=== PATIENT | male | born 1970 | race Two or more races ===

== ENCOUNTER 2024-07-08 07:20 | Emergency (ER) | payer BC, SELFPAY ==
[2024-07-08 07:21] VITALS: BMI 28.1
[2024-07-08 07:28] VITALS: BP 169/99; PULSE 82; RESP 16; TEMP 36.9; O2SAT 98
--- NOTE | 2024-07-08 07:36 | XR_ITS ---
Examination: CT brain head without contrast. 2-D sagittal coronal reconstructions Date and time of exam:July 08, 2024 at 0725 hrs. Comparison April 13, 2023 Indications: Headaches blood pressure today CTDI: vol (mGy):54 DLP: (mGycm):1032 Technique: Multiple CT axial sections of the brain have been obtained, 5 mm slice thickness. Contrast has not been administered. 2-D sagittal, coronal reconstructions have been obtained Low dose protocols were performed. One or more of the following dose reduction techniques were used; automated exposure control, adjustment of the mA and/or KV according to patient size, use of iterative reconstruction technique. Findings: No significant ventricular enlargement. 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 No mass effect or midline shift Basal cisterns are not remarkable. Fourth ventricle is midline. Cranial vault intact. Chronic left mastoiditis Impression: Negative for acute hemorrhage, mass effect or midline shift
--- NOTE | 2024-07-08 07:36 | XR_ITS ---
Examination: PA lateral chest 2 views Technique: Upright PA lateral chest 2 views Exam date and time: July 08, 2024 0748 hrs. Comparison June 13, 2022 Indications: Elevated blood pressure chest pain today Findings: Normal heart size. Lungs are clear. The osseous structures are intact Impression: No active disease
--- NOTE | 2024-07-08 07:36 | EKG_ITS ---
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
--- NOTE | 2024-07-08 07:37 | PD.EDRME ---
Rapid Medical Screening Exam RME Arrival date/time: 07/08/24 07:20 54-year-old male history of hypertension and hypokalemia currently taking amlodipine and losartan presents to the emergency department today with complaints of elevated blood pressure and headache Chief Complaint: General Adult/Misc Complain Time Seen by Provider: 07/08/24 07:32 Vital signs: Vital Signs Temperature 98.5 F 07/08/24 07:28 Pulse Rate 82 07/08/24 07:28 Respiratory Rate 16 07/08/24 07:28 Blood Pressure 169/99 H 07/08/24 07:28 Pulse Oximetry (%) 98 07/08/24 07:28 Oxygen Delivery Method Room Air 07/08/24 07:28
[2024-07-08 08:30] VITALS: BP 162/95; PULSE 83; RESP 16; TEMP 36.9; O2SAT 98
[2024-07-08 09:05] VITALS: BP 155/101; BP 164/95; BP 167/111; PULSE 86; PULSE 88; PULSE 98
[2024-07-08 09:21] VITALS: BP 150/87; PULSE 78
[2024-07-08] MEDS: hydrALAZINE HCL 25 MG TABLET PO (09:21)
[2024-07-08 09:33] LABS: Basophils # (Auto) 0.1 Thou/mm3 (0.0-0.2); Basophils % (Auto) 1 % (0-2.5); Eosinophils # (Auto) 0.1 Thou/mm3 (0.0-0.5); Eosinophils % (Auto) 1 % (0-10); Hematocrit 49.5 % (41.0-53.0); Hemoglobin 17.6 g/dL (13.5-16.0); Immature Granulocytes % (Auto) 0 % (0-0); Immature Granulocytes Auto 0.02 Thou/mm3 (0.00-0.00); Lymphocytes # (Auto) 1.6 Thou/mm3 (1.0-4.8); Lymphocytes % (Auto) 21 % (10-50); Mean Corpuscular HGB Conc 35.6 g/dl (31.0-37.0); Mean Corpuscular Hemoglobin 29.3 pg (25.0-35.0); Mean Corpuscular Volume 83 fL (80-100); Monocytes # (Auto) 0.5 Thou/mm3 (0.0-0.8); Monocytes % (Auto) 6 % (0-12); Neutrophils # (Auto) 5.3 Thou/mm3 (1.8-7.7); Neutrophils % (Auto) 70 % (37-80); Nucleated Red Blood Cell % 0 /100 WBC (0); Platelet Count 184 Thou/mm3 (140-440); RDW Standard Deviation 39.1 fL (35.1-43.9); White Blood Count 7.5 Thou/mm3 (3.8-10.6)
--- NOTE | 2024-07-08 09:42 | EDNOTE_ITS ---
ED Dizzyness RME/HPI General Chief Complaint: General Adult/Misc Complain Stated Complaint: HIGH BLOOD PRESSURE SINCE THIS AM Time Seen by Provider: 07/08/24 07:32 Arrival date/time: 07/08/24 07:20 RME / HPI RME / HPI Narrative: 07/08/24 07:20 54-year-old male history of hypertension and hypokalemia currently taking amlodipine and losartan presents to the emergency department today with complaints of elevated blood pressure and headache --------- Main ED Evaluation: Patient is a 54-year-old male with past medical history of hypertension who presents to the ED with dizziness starting 4 days ago. Patient reports the dizziness is described as spinning and it worsens if he tilts his head backwards, goes from sitting to laying, or watches flashing lights on a screen and is relieved if he closes his eyes. He denies any lightheadedness or prodrome of fainting. He notes unsteadiness with walking due to the dizziness. He states his blood pressure has been high over the last few days with systolic in the 1 80s and he has been poorly compliant with his BP medications during the week due to believing that the amlodipine is making him urinate more frequently at work. Patient also has history of having hypokalemia and states that when he eats a banana the dizziness tends to improve for a few hours. 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 Conversational and non-toxic appearing. HEENT: Normocephalic, atraumatic, mucous membranes moist. Right and left tympanic membranes intact and clear without exudate or erythema. Heart: Regular rate and rhythm, no murmurs. Lungs: Clear to auscultation with no wheezing or crackles. Abdomen: Soft, nondistended, nontender, positive bowel sounds. ?No guarding or rebound tenderness. Neurologic: Alert and oriented x3, no gross neurological deficit, and patient able to move all 4 extremities. Negative Marie-Hallpike. Negative Head Impulse Luciana t. Negative for horizontal or vertical nystagmus. Negative for diplopia. Extremities: No edema. Skin: No rash or ecchymoses. Course Quality Measures none Orders Category Date Time Status EKG (ED ONLY) *Do not use* NOW Care 07/08/24 07:36 Completed Orthostatic Vitals X1 Care 07/08/24 09:[address] head/brain wo con Stat Exams 07/08/24 07:36 Completed EKG (ED Only) Stat Exams 07/08/24 07:36 Draft XR chest 2V Stat Exams 07/08/24 07:36 Completed CBC Stat Lab 07/08/24 08:30 Completed Comprehensive Metabolic Panel Stat Lab 07/08/24 08:30 Completed Troponin I Stat Lab 07/08/24 08:30 Completed Potassium Chloride [K-Dur] Med 07/08/24 10:06 Discontinued 40 meq PO X1 ONE hydrALAZINE HCL [Apresoline] Med 07/08/24 09:00 Discontinued 25 mg PO X1 ONE Vital Signs Vital signs: Vital Signs Temperature 98.5 F 07/08/24 07:28 Pulse Rate 82 07/08/24 07:28 Respiratory Rate 16 07/08/24 07:28 Blood Pressure 169/99 H 07/08/24 07:28 Pulse Oximetry (%) 98 07/08/24 07:28 Oxygen Delivery Method Room Air 07/08/24 07:28 Procedures -ED EKG Interpretation #1: Date of EK07/08/24 Time of EK:41 Rate: 88 Interpretation: Interpreted by me EKG Impression: Normal sinus rhythm, No acute ST-T changes, Normal QRS and Normal intervals Dizziness MDM Narrative MDM Narrative:: Differentials for the patient's dizziness include hypertensive urgency, hypertensive emergency, orthostatic hypotension, benign paroxysmal peripheral vertigo, central vertigo secondary to TIA, stroke, or hypertensive urgency, posterior vertebral basilar syndrome, cerebral aneurysm. CT head was not showing any acute hemorrhage or subacute strokes. Physical exam did not reveal any positive findings concerning for a central cause of vertigo. Marie-Hallpike testing was negative. Patient was given a dose of PO hydralazine 25 mg, BP improved to 123/73 and stated that his dizziness symptoms improved. Labs revealed polycythemia which the patient appears to have had a history, he d enied any prior significant history of smoking nor high altitude living as potential causes of secondary polycythemia, therefore patient was instructed to follow up with his PCP regarding these findings. Labs also showed hypokalemia of 3.1, he was given a dose of PO potassium 40 mEq here in the ED. As he has a history of low potassium he was also encouraged to increase oral intake of potassium rich foods as well as follow up with his primary regarding following the potassium level and potential need for further workup should it be continuously low. Patient data External records reviewed:: [facility] previous records Clinical information provided by:: patient and spouse Social determinants that could affect healthcare access:: none Patient has the following chronic illnesses:: As above How is presenting disease/condition affected by chronic disease/condition?: exacerbated by Evaluation data The following diagnostics were reviewed and interpreted by me:: lab results, radiology exam(s) and EKG tracing(s) Lab and/or radiology exams considered but not ordered:: Ordered Interpretation Summary: -------- CT head without contrast Findings: No significant ventricular enlargement. 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 No mass effect or midline shift Basal cisterns are not remarkable. Fourth ventricle is midline. Cranial vault intact. Chronic left mastoiditis Impression: Negative for acute hemorrhage, mass effect or midline shift -------- Orthostatic vitals were as follows: Lying BP 164/95, HR 86 Sitting BP 155/101, HR 88 Standing BP 167/111, HR 98 Orthostatics are negative according to my interpretation. -------- Chest X-Ray is negative according to my interpretation. No pneumonia, no card iomegaly, no pulmonary vascular congestion. -------- Hgb is high at 17.6 but the patient also appears to have chronically high hemoglobin. Potassium is low at 3.1. Troponin is negative. Medications / Prescriptions Medications or Prescriptions considered but not ordered:: IV hydralazine Medication administrations:: Medication Administration History Discontinued Medications Hydralazine HCl (Hydralazine Hcl 25 Mg Tablet) 25 mg PO X1 ONE Stop: 07/08/24 09:01 Last Admin: 07/08/24 09:21 Dose: 25 mg Documented By: LIN Potassium Chloride (Potassium Chloride 20 Meq Tabcr) 40 meq PO X1 ONE Stop: 07/08/24 10:07 Last Admin: 07/08/24 10:22 Dose: 40 meq Documented By: VG Given Consultations Consultation(s) initiated? (list below): No Diagnosis Dizziness Differential Diagnosis: benign paroxysmal positional vertigo, orthostatic hypotension, vertebral basilar insufficiency, cerebrovascular accident, acute vestibular neuronitis and transient cerebral ischemia Most likely diagnosis given after review of the tests above:: Hypertensive urgency Admission Indicated Admission indicated?: not indicated Admission Request Was there a request for admission?: No Disposition Plan Disposition Plan: Discharge Discharge Attestation Discharge Attestation: The patient and all family members were given an opportunity to ask questions and understood the discharge instructions. Discharge instructions specifically effects, indications for sooner follow up or return to the emergency department, and the expected course of current diagnosis. Patient condition: Stable Discharge Plan Plan Patient Disposition: HOME (Self Care) Patient condition on transfer: Stable Prescriptions/Referrals Referrals: Flaco Menjivar MD [Primary Care Provider] - In 1 week Problem List Clinical Impression: Dizziness, Hypokalemia, Erythrocytosis Patient/Caregiver Discharge Instructions Discharge Activity: activity as tolerated and resume usual activities Education Materials: Vertigo Staying Safe, Discharge Instructions for ..., ED Hypokalemia Additional Instructions: Today you were seen for dizziness. A CT head scan today was negative for any abnormal findings. Physical exam testing for dizziness was negative, including [place]-Hallpike testing, nystagmus testing, and head-impulse testing. Your blood pressure in the ED ranged from 169/99 to 123/73. You received 40 mEq oral potassium and 40 mg oral hydralazine today in the ED. Please follow up with your primary care provider regarding the following lab results: -Low potassium, 3.1 today in the ED. -High hemoglobin, 17.6 today in the ED. You may need further workup to look at causes for these abnormal tests. For now, please see the following handouts for ways to supplement potassium. Please return to the ED if you have any worsening of symptoms, changes in vision, difficulty walking, sudden weakness. Print Language: Luxembourger Stand Alone Forms: Shanon Award Info., Patient Portal Info Letter
[2024-07-08 09:44] LABS: Alanine Aminotransferase 30 U/L (10-49); Albumin, Serum 4.6 gm/dL (3.5-5.0); Albumin/Globulin Ratio 1.7 (1.2-2.2); Alkaline Phosphatase 118 U/L (46-116); Anion Gap 9 (7-16); Aspartate Amino Transferase 19 U/L (0-34); BUN/Creatinine Ratio 12 Ratio (12-20); Bilirubin,Total 1.6 mg/dL (0.3-1.2); Blood Urea Nitrogen 11 mg/dL (9-23); Calcium 9.5 mg/dL (8.3-10.6); Calcium (Corrected) 9.5 mg/dL (8.5-10.1); Carbon Dioxide 25.8 mMol/L (20.0-31.0); Chloride 105 mMol/L (98-107); Creatinine (Component) 0.9 mg/dL (0.6-1.3); Estimated Creatinine Clearance 93.7 mL/min (>60); Globulin 2.7 gm/dL (2.3-3.5); Glucose 106 mg/dL (74-106); Osmolality,Calculated 278 (275-295); Potassium 3.1 mMol/L (3.4-5.1); Sodium 140 mMol/L (136-145); Total Protein 7.3 gm/dL (5.7-8.2); Troponin I < 0.020 ng/mL (0.0-0.045); eGFR > 60 See Note
[2024-07-08 10:15] VITALS: BP 123/73; PULSE 72; RESP 15; TEMP 37; O2SAT 95
[2024-07-08] MEDS: POTASSIUM CHLORIDE 20 mEq TABCR 40 MEQ PO (10:22)
[2024-07-08 11:38] VITALS: BP 151/88; PULSE 83; RESP 16; TEMP 36.6; O2SAT 97
== END 2024-07-08 11:39 | disposition home or self-care (01) ==
PROVIDERS: Nurse Practitioner Primary Care; Emergency Provider Emergency Medicine; PCP Internal Medicine
DX: E87.6 Hypokalemia (principal); D75.1 Secondary polycythemia; R07.9 Chest pain, unspecified; R51.9 Headache, unspecified; R94.31 Abnormal electrocardiogram [ECG] [EKG]; I10 Essential (primary) hypertension
CPT/HCPCS: 36415; 70450; 71046; 80053; 84484; 85025; 93005; 99284; A9270

== ENCOUNTER → 2024-07-10 | Outpatient (CLI) | payer BC, SELFPAY ==
--- NOTE | 2024-07-10 10:19 | XR_ITS ---
Examination: Carotid arterial duplex scan, ultrasound. Date and time of exam: July 10, 2024 10:36 AM INDICATIONS: Headaches with high blood pressure beginning 3 days ago Technique: Multiple sonographic images have been obtained of the carotid arteries and vertebral arteries, B-mode/grayscale imaging and Doppler spectral analysis and color flow Peak systolic and diastolic velocities have been recorded. Systolic diastolic ratios have been calculated. Findings: Right peak systolic velocities: Distal internal carotid artery peak systolic velocity is 1.8 M/sec Proximal internal carotid artery peak systolic velocity is 0.6 M/sec Carotid bifurcation peak systolic velocity is 1.0 M/sec External carotid artery peak systolic velocity is 1.2 M/sec Vertebral artery flow is antegrade. Left peak systolic velocities: Distal internal carotid artery peak systolic velocity is 0.7 M/sec Proximal internal carotid artery peak systolic velocity is 0.8 M/sec Carotid bifurcation peak systolic velocity is 1.2 M/sec External carotid artery peak systolic velocity is 1.1 M/sec Vertebral artery flow is antegrade Doppler waveform analysis demonstrates no spectral broadening Impression: Right internal carotid artery demonstrates 0-10% stenosis. Left internal carotid artery demonstrates 0-10% stenosis.
[2024-07-10 17:15] LABS: Alanine Aminotransferase 39 U/L (10-49); Albumin, Serum 4.7 gm/dL (3.5-5.0); Albumin/Globulin Ratio 1.6 (1.2-2.2); Alkaline Phosphatase 115 U/L (46-116); Anion Gap 12 (7-16); Aspartate Amino Transferase 34 U/L (0-34); BUN/Creatinine Ratio 15 Ratio (12-20); Blood Urea Nitrogen 15 mg/dL (9-23); Calcium 9.8 mg/dL (8.3-10.6); Calcium (Corrected) 9.8 mg/dL (8.5-10.1); Carbon Dioxide 22.7 mMol/L (20.0-31.0); Chloride 107 mMol/L (98-107); Cholesterol 183 mg/dL (132-200); Free T4 (Free Thyroxine) 1.76 ng/dL (0.89-1.76); Globulin 2.9 gm/dL (2.3-3.5); Glucose 102 mg/dL (74-106); Magnesium 2.2 mg/dL (1.6-2.6); Osmolality,Calculated 283 (275-295); Potassium 4.5 mMol/L (3.4-5.1); Sodium 142 mMol/L (136-145); Thyroid Stimulating Hormone 1.73 uIU/mL (0.55-4.78); Total Protein 7.6 gm/dL (5.7-8.2); Triglycerides 97 mg/dL (30-150); eGFR > 60 See Note
[2024-07-10 17:27] LABS: Cardiac Risk Estimate 3.1 RATIO (4.0-6.7); HDL Cholesterol 60 mg/dL (40-60); LDL Cholesterol,Calculated 104 mg/dL (0-130)
== END | disposition home or self-care (01) ==
LOC: CDIM 10:10 → COPL 10:19
PROVIDERS: PCP Internal Medicine; Referring Provider Internal Medicine; Visit Provider Radiology Diagnostic Radiology
DX: I65.23 Occlusion and stenosis of bilateral carotid arteries (principal); I10 Essential (primary) hypertension; E87.6 Hypokalemia; E78.2 Mixed hyperlipidemia
CPT/HCPCS: 36415; 80053; 80061; 83735; 84439; 84443; 93880

== ENCOUNTER 2024-07-27 03:17 | Emergency (ER) | payer BC, SELFPAY ==
[2024-07-27 03:18] VITALS: BMI 26.6
[2024-07-27 03:24] VITALS: BP 178/92; PULSE 91; RESP 19; TEMP 36.5; O2SAT 99
--- NOTE | 2024-07-27 03:28 | EKG_ITS ---
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
--- NOTE | 2024-07-27 03:59 | XR_ITS ---
Examination: CT brain head without contrast. 2-D sagittal coronal reconstructions Date and time of exam:July 27, 2024 0409 hrs. Comparison July 08, 2024 Indications: Onset dizziness with headaches today CTDI: vol (mGy):51.4 DLP: (mGycm): 1049 Technique: Multiple CT axial sections of the brain have been obtained, 5 mm slice thickness. Contrast has not been administered. 2-D sagittal, coronal reconstructions have been obtained Low dose protocols were performed. One or more of the following dose reduction techniques were used; automated exposure control, adjustment of the mA and/or KV according to patient size, use of iterative reconstruction technique. Findings: No significant ventricular enlargement. Intra-axial or extra-axial hemorrhage density is not seen. No mass effect or midline shift Basal cisterns are not remarkable. Fourth ventricle is midline. Cranial vault intact. Impression: Negative for acute hemorrhage, mass effect or midline shift Advise clinical correlation follow-up accordingly
--- NOTE | 2024-07-27 04:00 | EDNOTE_ITS ---
ED General RME/HPI General Chief complaint: Dizziness Stated complaint: DIZZINESS/ BP 156/103 Time Seen by Provider: 07/27/24 04:02 Arrival date/time: 07/27/24 03:17 RME / HPI RME / HPI narrative: Patient is 54 years old male with past medical history of hypertension presented to the ED complaining of dizziness. He reports he is working nights and he came from work today and tried to sleep but was unable to because of dizziness. He became anxious and decided to come to the ED. He was previously evaluated for similar symptoms in the ED. He also reports his hearing become muffled when episodes begins and he feels chills. He also reports his legs becomes itchy after showers sometimes. He denies any headache, seizures, changes in vision, fever, abdominal pain. He is followed by nephrology for resistant hypertension. Related Data Previous Rx's ?Medication ?Instructions ?Recorded alprazolam 0.5 mg tablet (Xanax) 0.5 mg PO BID PRN anx iety #10 tabs 07/27/24 metoprolol succinate 100 mg 100 mg PO QDAY #30 ea 01/13 capsule sprinkle, ext. release 24 hr Allergies Allergy/AdvReac Type Severity Reaction Status Date / Time NKA* Allergy Uncoded 07/08/24 07:25 Review of Systems Review of Systems Systems Reviewed: All systems reviewed, normal except as documented ED Exam Narrative Physical exam: Gen: Well-developed and well-nourished. HEENT: NCAT, PERRLA, EOMI, MMM, anicteric conjunctivae. CVS: normal S1 and S2. RRR. No M/R/G. Resp: CTA B/L. No rhonchi, rales, crackles or wheezing. Abd: soft, non-tender, non-distended. BS+ in all 4 quadrants. MSK: Good ROM in BUE & BLE. No edema or rash. Neuro: CN II-XII grossly intact. Strength 5/5 in BUE & BLE. Alert and oriented x3. Psych: anxious. Course Quality Measures none Orders Category Date Time Status EKG (ED ONLY) *Do not use* NOW Care 07/27/24 03:28 Completed Saline [Insert IV] NOW Care 07/27/24 04:[address] chest abdomen pelvis wo Stat Exams 07/27/24 04:[address] head/brain wo con Stat Exams 07/27/24 03:59 Taken EKG (ED Only) Stat Exams 07/27/24 03:28 Draft Bilirubin,Direct Stat Lab 07/27/24 04:40 Completed CBC Stat Lab 07/27/24 04:40 Completed CMP [Comprehensive Metabolic Panel] Stat Lab 07/27/24 04:40 Completed Magnesium Stat Lab 07/27/24 04:40 Completed Reticulocyte Count Stat Lab 07/27/24 04:40 Completed Troponin I Stat Lab 07/27/24 04:40 Completed Urinalysis Stat Lab 07/27/24 04:10 Ordered ALPRazoLAM [Xanax] Med 07/27/24 04:30 Discontinued 0.5 mg PO X1 ONE Potassium Chloride [K-Dur] Med 07/27/24 05:26 Once 40 meq PO X1 ONE Vital Signs Vital signs: Vital Signs Temperature 97.7 F 07/27/24 03:24 Pulse Rate 91 07/27/24 03:24 Respiratory Rate 19 07/27/24 03:24 Blood Pressure 178/92 H 07/27/24 03:24 Pulse Oximetry (%) 99 07/27/24 03:24 Oxygen Delivery Method Room Air 07/27/24 03:24 Procedures -ED EKG Interpretation Sinus rhythm: Date of EK07/27/24 Time of EK:41 Rate: 89 Interpretation: Reviewed by me EKG Impression: Normal sinus rhythm MDM Patient data External records reviewed:: [facility] previous records Clinical information provided by:: patient and family Social determinants that could affect healthcare access:: none Patient has the following chronic illnesses:: HTN How is presenting disease/condition affected by chronic disease/condition?: e xacerbated by Evaluation data The following diagnostics were reviewed and interpreted by me:: lab results, radiology exam(s) and EKG tracing(s) Lab and/or radiology exams considered but not ordered:: CTA Interpretation Summary: Old stroke on CT head, hypokalemia. Medications Medications considered but not ordered:: Aspirin, statin, meclizine. Medication administrations:: Medication Administration History Discontinued Medications Alprazolam (Alprazolam 0.25 Mg Tablet) 0.5 mg PO X1 ONE Stop: 07/27/24 04:31 Last Admin: 07/27/24 04:36 Dose: 0.5 mg Documented By: CB Alprazolam 0.5 mg, potassium 40 mEq PO. Consultations Consultation(s) initiated? (list below): No Diagnosis Differential Diagnosis ED Complaint MDM: primary/secondary polycythemia, HTN, CVA, anxiety Most likely diagnosis given after review of the tests above:: Anxiety Admission Indicated Admission indicated?: not indicated Explain why admission is indicated or not indicated:: Patient is stable clinically and hemodynamically. Workup is negative for acute findings. Admission Request Was there a request for admission?: No Disposition Plan Disposition Plan: Discharge Discharge Attestation Discharge Attestation: The patient and all family members were given an opportunity to ask questions and understood the discharge instructions. Discharge instructions specifically effects, indications for sooner follow up or return to the emergency department, and the expected course of current diagnosis. Patient condition: Stable Medical Decision Making Differential Diagnosis Differential Diagnosis: primary/secondary polycythemia, HTN, CVA, anxiety Lab Data 07/27/24 04:40 07/27/24 04:40 Labs: Lab Results 07/27/24 Range/Units 04:40 WBC 7.6 (3.8-10.6) Thou/mm3 RBC 5.16 (4.50-5.90) Miln/mm3 Hgb 15.0 (13.5-16.0) g/dL Hct 43.3 (41.0-53.0) % MCV 84 (80-100) fL MCH 29.1 (25.0-35.0) pg MCHC 34.6 (31.0-37.0) g/dl RDW Std Deviation 39.7 (35.1-43.9) fL Plt Count 171 (140-440) Thou/mm3 Neut % (Auto) 64 (37-80) % Lymph % (Auto) 25 (10-50) % [place]man % (Auto) 8 (0-12) % Eos % (Auto) 3 (0-10) % Baso % (Auto) 1 (0-2.5) % Neut # (Auto) 4.9 (1.8-7.7) Thou/mm3 Lymph # (Auto) 1.9 (1.0-4.8) Thou/mm3 Hickman # (Auto) 0.6 (0.0-0.8) Thou/mm3 Eos # (Auto) 0.2 (0.0-0.5) Thou/mm3 Baso # (Auto) 0.1 (0.0-0.2) Thou/mm3 Immature Gran # (Auto) 0.02 H (0.00-0.00) Thou/mm3 Absolute Nucleated RBC 0.00 (0.00-0.00) Thou/mm3 Immature Gran % 0 (0-0) % Nucleated RBC % 0 (0) /100 WBC Retic Count (auto) 0.8 (0.5-1.5) % Absolute Retic 40.8 (25.0-75.0) Biln/L Immature Retic Fraction 5.1 (2.3-13.4) % Retic Hgb Content CHr 33.7 (28.0-35.0) pg Sodium 142 (136-145) mMol/L Potassium 3.2 L (3.4-5.1) mMol/L Chloride 110 H (98-107) mMol/L Carbon Dioxide 25.5 (20.0-31.0) mMol/L Anion Gap 7 (7-16) BUN 11 (9-23) mg/dL Creatinine 1.0 (0.6-1.3) mg/dL Estim Creat Clear Calc 79.8 (>60) mL/min eGFR > 60 (60 - ) See Note BUN/Creatinine Ratio 11 L (12-20) Ratio Glucose 94 (74-106) mg/dL Calculated Osmolality 282 (275-295) Calcium 9.3 (8.3-10.6) mg/dL Corrected Calcium 9.3 (8.5-10.1) mg/dL Magnesium 2.2 (1.6-2.6) mg/dL Total Bilirubin 1.0 (0.3-1.2) mg/dL Direct Bilirubin 0.3 (0.0-0.3) mg/dL AST 19 (0-34) U/L ALT 30 (10-49) U/L Alkaline Phosphatase 110 (46-116) U/L Troponin I < 0.020 (0.0-0.045) ng/mL Total Protein 7.1 (5.7-8.2) gm/dL Albumin 4.5 (3.5-5.0) gm/dL Globulin 2.6 (2.3-3.5) gm/dL Albumin/Globulin Ratio 1.7 (1.2-2.2) Discharge Plan Plan Patient Disposition: HOME (Self Care) Patient condition on transfer: Stable Prescriptions/Referrals Prescriptions/Med Rec: New metoprolol succinate 100 mg capsule,sprinkle,ER 24hr 100 mg PO QDAY Qty: 30 0RF alprazolam [Xanax] 0.5 mg tablet 0.5 mg PO BID PRN (Reason: anxiety) Qty: 10 0RF Referrals: Temporary Provider,ED [Physician] - In 1 week Problem List Clinical Impression: Dizziness Patient/Caregiver Discharge Instructions Discharge Activity: activity as tolerated Education Materials: ED Anxiety Reaction, ED Dizziness, Uncertain Cause Additional Instructions: Discharge instructions from Dr. Neil: 1. After extensive evaluation, there is no life-threatening condition.? Such as acute stroke or brain tumor or heart attack. 2. Your symptoms may be due to underlying stress or anxiety or nerves.? This is fairly common. 3. Take Xanax as needed.? Whether this helps or not will be valuable information to your private doctors. Take Metoprolol ER 100 mg every night. You will live longer with lower BP and slower heart rate, and this will help your anxiety symptoms. 4. See a private doctor on 07/29/2024 for recheck and further care. Ask to review all test results and official radiology reports, to make sure you receive all necessary follow-ups and monitoring. Ask for help with more workup, including MRI of the brain and referrals to see neurologist. And if indicated, to make sure there is no serious underlying heart condition, ask to help you get more tests for your heart that cannot be done here in the ER.? Such as Holter Monitor (cardiac monitoring at home from a day to even a month), heart stress test (on treadmill or with medication), echocardiogram (imaging of your heart structures), heart catherization (checking for blockages in your heart arteries), and a referral to see a Health Care Legal Assistant. 5. Seek immediate medical care with worsening or with any concerns.?? Print Language: Polish Stand Alone Forms: Shanon Award Info., Patient Portal Info Letter
--- NOTE | 2024-07-27 04:14 | XR_ITS ---
Examination: CT chest, without intravenous contrast. CT abdomen, without intravenous contrast. CT pelvis, without intravenous contrast. 2-D sagittal and coronal reconstructions. 3-D reconstructions. Date and time of exam:July 27, 2024 0420 hrs. Indications: Generalized chest and abdominal pain today CTDI vol (mgy) 6.66 DLP (MGycm)[id number] Technique: Multiple CT images, 3.0 mm slice thickness, obtained chest, abdomen, pelvis, with the high-resolution 64 slice scanner.. Sagittal and coronal 2-D reconstructions are obtained. 3-D reconstructions Low dose protocols were performed. One or more of the following dose reduction techniques were used; automated exposure control, adjustment of the mA and/or KV according to patient size, use of iterative reconstruction technique. Findings: No thoracic aortic aneurysmal dilatation Main pulmonary artery segment 33 mm upper No paratracheal tracheobronchial or bronchopulmonary adenopathy 3 mm pulmonary nodule right upper lobe image 51 Left apical pleural thickening 20 mm nodular density in the left upper lobe axial image 178 No lobar pneumonia or pulmonary edema Benign liver cyst Absent gallbladder Spleen not enlarged No pancreatic or adrenal mass Mild bilateral renal parenchymal scar formation Aorta normal size Normal appendix No bowel obstruction AP prostate dimension 4.8 cm Chronic osteoporotic compression L3 Impression: No acute process in the chest abdomen or pelvis Recommend 6 month follow-up CT chest to document stability of pulmonary nodules described above
[2024-07-27] MEDS: ALPRazoLAM 0.25 MG TABLET 0.5 MG PO (04:36)
--- NOTE | 2024-07-27 04:40 | PRELIM_ITS ---
CT scan of the head without intravenous contrast (axial sections with sagittal and coronal reformats) July 27, 2024 0409 hours Clinical history: Dizziness. Comparison: No prior study is available for comparison. Findings: There is no evidence of intracranial hemorrhage, mass effect or midline shift. An old lacunar infarct is noted in the right basal ganglia. There are periventricular white matter hypodensities, compatible with chronic small vessel ischemia. There is mild volume loss. There is atheromatous calcification of the intracranial arteries. The calvarium is unremarkable. There is mild mucosal thickening in the left ethmoid sinus. The mastoid air cells and the other visualized paranasal sinuses are clear. Impression: No evidence of intracranial hemorrhage, mass effect or midline shift. Periventricular chronic small vessel ischemia, old lacunar infarct and volume loss. Report Electronically Signed By: Petr Benavides 07/27/2024 4:38:52 AM [EST]
[2024-07-27 04:58] LABS: Basophils # (Auto) 0.1 Thou/mm3 (0.0-0.2); Basophils % (Auto) 1 % (0-2.5); Eosinophils # (Auto) 0.2 Thou/mm3 (0.0-0.5); Eosinophils % (Auto) 3 % (0-10); Hematocrit 43.3 % (41.0-53.0); Immature Granulocytes % (Auto) 0 % (0-0); Immature Granulocytes Auto 0.02 Thou/mm3 (0.00-0.00); Immature Reticulocyte Fraction 5.1 % (2.3-13.4); Lymphocytes # (Auto) 1.9 Thou/mm3 (1.0-4.8); Lymphocytes % (Auto) 25 % (10-50); Mean Corpuscular HGB Conc 34.6 g/dl (31.0-37.0); Mean Corpuscular Hemoglobin 29.1 pg (25.0-35.0); Mean Corpuscular Volume 84 fL (80-100); Monocytes # (Auto) 0.6 Thou/mm3 (0.0-0.8); Monocytes % (Auto) 8 % (0-12); Neutrophils # (Auto) 4.9 Thou/mm3 (1.8-7.7); Neutrophils % (Auto) 64 % (37-80); Nucleated Red Blood Cell % 0 /100 WBC (0); Platelet Count 171 Thou/mm3 (140-440); RDW Standard Deviation 39.7 fL (35.1-43.9); Red Blood Count 5.16 Miln/mm3 (4.50-5.90); Reticulocyte % (Auto) 0.8 % (0.5-1.5); Reticulocyte Absolute Auto 40.8 Biln/L (25.0-75.0); Reticulocyte Hgb Content 33.7 pg (28.0-35.0); White Blood Count 7.6 Thou/mm3 (3.8-10.6)
--- NOTE | 2024-07-27 05:15 | PRELIM_ITS ---
CT scan of the chest, abdomen and pelvis without intravenous contrast (axial sections with sagittal and coronal reformats) July 27, 2024 0420 hours Clinical History: Chest and abdominal pain. Comparison: No prior study is available for comparison. Findings: The lungs are clear. There is no pleural effusion or pneumothorax. The aorta is unremarkable on this noncontrast study. No evidence of mediastinal mass or lymphadenopathy. There is no pericardial effusion. There is a non-calcified nodule in the left upper lobe, measuring 2.5 mm (axial image 46/503). The gallbladder is surgically absent. Nonspecific perinephric fat stranding is noted bilaterally. There is a cyst in the right lobe of the liver, measuring 3.5 cm. A small hypodense lesion is noted in the liver, which is too small to characterize. The spleen, pancreas, adrenals and kidneys are unremarkable on this noncontrast study. No evidence of bowel obstruction. A moderate amount of fecal material is present in the colon rectum. The appendix is within normal limits (coronal images 71-81/147). The urinary bladder is unremarkable. There is a mild prostatomegaly. There is no free fluid or free air. Calcific densities are seen in the pelvis, likely representing phleboliths. Degenerative changes are identified in the spine. There is a chronic compression deformity of the L3 vertebra. Impression: No evidence of acute intrathoracic, intraabdominal or pelvic pathology on this noncontrast study. Non-calcified nodule as described above. Other findings as described above. Report Electronically Signed By: Petr Benavides 07/27/2024 5:15:03 AM [EST]
[2024-07-27 05:24] LABS: Alanine Aminotransferase 30 U/L (10-49); Albumin, Serum 4.5 gm/dL (3.5-5.0); Albumin/Globulin Ratio 1.7 (1.2-2.2); Alkaline Phosphatase 110 U/L (46-116); Anion Gap 7 (7-16); Aspartate Amino Transferase 19 U/L (0-34); BUN/Creatinine Ratio 11 Ratio (12-20); Bilirubin,Direct 0.3 mg/dL (0.0-0.3); Blood Urea Nitrogen 11 mg/dL (9-23); Calcium 9.3 mg/dL (8.3-10.6); Calcium (Corrected) 9.3 mg/dL (8.5-10.1); Carbon Dioxide 25.5 mMol/L (20.0-31.0); Chloride 110 mMol/L (98-107); Estimated Creatinine Clearance 79.8 mL/min (>60); Globulin 2.6 gm/dL (2.3-3.5); Glucose 94 mg/dL (74-106); Magnesium 2.2 mg/dL (1.6-2.6); Osmolality,Calculated 282 (275-295); Potassium 3.2 mMol/L (3.4-5.1); Sodium 142 mMol/L (136-145); Total Protein 7.1 gm/dL (5.7-8.2); Troponin I < 0.020 ng/mL (0.0-0.045); eGFR > 60 See Note
[2024-07-27] MEDS: POTASSIUM CHLORIDE 20 mEq TABCR 40 MEQ PO (05:35)
[2024-07-27 05:36] VITALS: BP 164/76; PULSE 79; RESP 18; TEMP 36.7; O2SAT 99
== END 2024-07-27 05:39 | disposition home or self-care (01) ==
PROVIDERS: Student in an Organized Health Care Education/Training Program; Emergency Provider Emergency Medicine; PCP Internal Medicine
DX: R42 Dizziness and giddiness (principal); E87.6 Hypokalemia; I10 Essential (primary) hypertension
CPT/HCPCS: 36415; 70450; 71250; 74176; 80053; 81001; 82105; 82248; 83735; 84443; 84484; 85025; 85046; 93005; 99284; A9270

== ENCOUNTER → 2024-08-12 | Outpatient (CLI) | payer BC, SELFPAY ==
--- NOTE | 2024-08-12 15:00 | XR_ITS ---
Examination: CT abdomen and pelvis without contrast. Coronal 3-D reconstructions. Sagittal 2-D reconstructions. Date and time of exam:August 12, 2024 1515 hours Comparison July 27, 2024 INDICATIONS: Uncontrolled hypertension beginning 2 months ago, diagnosis primary hyperaldosteronism CTDI: vol (mGy): 7.80 DLP: (mGycm): 485 Technique: Axial images of the abdomen have been obtained, 3 mm slice thickness Intravenous contrast material has not been administered. Low dose protocols were performed. One or more of the following dose reduction techniques were used; automated exposure control, adjustment of the mA and/or KV according to patient size, use of iterative reconstruction technique. Findings: 35mm right lower liver cyst Absent gallbladder No pancreatic or adrenal mass Normal adrenal glands No renal or ureteral calculi, mild bilateral renal parenchymal scar formation No abdominal or pelvic lymphadenopathy Normal appendix No bowel obstruction No diverticulitis Prostatomegaly AP dimension 4.8 cm mediolateral dimension 5.0 cm Urinary bladder wall thickening up to 5 mm Moderate osteopenia with chronic compression, mild L3 IMPRESSION: Normal adrenal glands Mild bilateral renal parenchymal scar formation, no renal calculi or hydronephrosis Normal appendix No abdominal or pelvic lymphadenopathy Moderate prostatomegaly Mild thickening of the urinary bladder wall, consider urinary tract infection, early outflow obstruction secondary to the prostatomegaly
== END | disposition home or self-care (01) ==
PROVIDERS: PCP Internal Medicine; Referring Provider Internal Medicine Nephrology; Visit Provider Internal Medicine Nephrology
DX: N28.89 Other specified disorders of kidney and ureter (principal); N40.0 Benign prostatic hyperplasia without lower urinary tract symptoms; N32.89 Other specified disorders of bladder
CPT/HCPCS: 74176